=== PATIENT | male | born 1955 | race Caucasian/White ===

== ENCOUNTER 2018-05-21 10:50 | Inpatient (IN) | payer OTHER ==
[~2018-05-21] VITALS: Ht 185.4 cm; Wt 103.4 kg
[~2018-05-21 10:50] MED LIST: CIPR500; METR500
[2018-05-21 11:47] LABS: BASOPHILS ABSOLUTE AUTO 0.02 K/mm3 (0.00-0.23); BASOPHILS PERCENT AUTO 0 % (0-2); EOSINOPHILS ABSOLUTE AUTO 0.09 K/mm3 (0.00-0.68); EOSINOPHILS PERCENT AUTO 1 % (0-6); Hematocrit 40.7 % (37.0-53.0); Hemoglobin 13.5 g/dL (13.5-17.5); IMMATURE GRAN ABSOLUTE AUTO 0.02 K/mm3 (0.00-0.10); IMMATURE GRAN PERCENT AUTO 0 % (0-1); LYMPHOCYTES ABSOLUTE AUTO 1.28 K/mm3 (0.84-5.20); LYMPHOCYTES PERCENT AUTO 11 % (21-46); MONOCYTES ABSOLUTE AUTO 1.59 K/mm3 (0.16-1.47); MONOCYTES PERCENT AUTO 14 % (4-13); Mean Corpuscular HGB 32.7 pg (26.0-34.0); Mean Corpuscular HGB Conc 33.2 g/dL (31.5-36.5); Mean Corpuscular Volume 99 fL (80-100); Mean Platelet Volume 10.5 fL (9.1-12.4); NEUTROPHILS ABSOLUTE AUTO 8.76 K/mm3 (1.96-9.15); NEUTROPHILS PERCENT AUTO 74 % (41-73); Platelet Count 248 K/mm3 (150-400); RDW Coefficient Variation 12.7 % (11.7-14.2); RDW Standard Deviation 45.7 fL (35.1-46.3); Red Blood Cell Count 4.13 M/mm3 (4.30-5.90); White Blood Cell Count 11.76 K/mm3 (4.00-11.30)
[2018-05-21 12:20] LABS: Alanine Aminotransfer (ALT/SGP 26 U/L (12-78); Albumin, Blood 4.3 g/dL (3.4-5.0); Albumin/Globulin Ratio 1.1 (0.8-1.8); Alk Phos 62 U/L (50-136); Anion Gap 6 mmol/L (6-16); Aspartate Aminotrans (AST/SGOT 19 U/L (12-37); Bilirubin, Total 1.3 mg/dL (0.1-1.0); Blood Urea Nitrogen 10 mg/dL (8-24); Bun/Creatinine Ratio 12.5 (12.0-20.0); CO2, Blood 26 mmol/L (21-32); Chloride, Blood 104 mmol/L (98-108); Globulin, Blood 3.9 g/dL (2.2-4.0); Glomerular Filtration Rate >60 (60-); Glucose, Blood 114 mg/dL (70-99); Potassium, Blood 4.4 mmol/L (3.5-5.5); Sodium, Blood 136 mmol/L (136-145); Total Protein, Blood 8.2 g/dL (6.4-8.2)
[2018-05-21] MEDS ORDERED: ATOR40TA PO (15:20)
[2018-05-21] MEDS ORDERED: AMLODIPINE/BENAZEPRI (15:21)
--- NOTE | 2018-05-21 18:06 | NUR ---
ADMIT TO ROOM 213 WITH SIGNIFICANT SWELLING/ERRYTHEMA INVOLVING LEFT HAND EXTENDING TO WRIST. GOOD SENSATION AND MOVEMENT. PATIENT TO XRAY AND THEN MRI AT THIS TIME.
--- NOTE | 2018-05-21 22:30 | NUR ---
05/21/182229 Franky Oates PT ON SCHEDULED ANTIBIOTICS AND RECIEVED THEM PRIOR TO ARRIVAL TO OR.
--- NOTE | 2018-05-22 00:16 | NUR ---
PT TO OR AT 2138; REPORT FROM ICU RECOVERY, DELMI RN, AT 0000. PT TO ROOM AT 0015. ALERT, ORIENTED. CALL LIGHT IN REACH; PT AT BEDSIDE.
--- NOTE | 2018-05-22 03:28 | NUR ---
SHIFT SUMMARY PT A&O X 4 T/O SHIFT. PT POD#1 I&D L HAND/2&3 FINGERS; DRESSING CDI; DRAIN BULB COMPRESSED; LUE ELEVATED; ICE TO L HAND; PAIN MANGED PER EMAR. PT CAN MOVE FINGERS L HAND. PT DENIES N/T IN EXT. PT DENIED SOB, CP AND NAUSEA T/O SHIFT. INDEPENDENT. SCD'S AND CLAUDIA'S TO BLE'S. CALL LIGHT IN REACH; PT DEMONSTRATES USE. WCTM UNTIL REPORT TO DAY SHIFT RN.
--- NOTE | 2018-05-22 15:46 | NUR ---
drain removed by dr medina. patients left hand elevated from iv pole
--- NOTE | 2018-05-22 17:38 | NUR ---
SUMMARY PAIN WELL CONTROLLED THROUGHOUT SHIFT. PATIENT MOVING FINGERS FREQUENTLY INSTRUCTED BY DR BROTHERS. PATIENT STATES HE HAS A LOT LESS SWELLING AND A LOT MORE MOVEMENT IN HAND AND FINGERS. LEFT HAND ELEVATED ON PILLOWS AND HUNG WITH STOCKINETTE FROM IV POLE
--- NOTE | 2018-05-22 17:56 | NUR ---
CIWA PATIENT CONSUMES DAILY ALCOHOL. CIWA 0 AT THIS TIME
--- NOTE | 2018-05-23 04:34 | NUR ---
SHIFT SUMMARY PT A&O X4 T/O SHIFT. POD#2 I&D L HAND; DRESSING CDI; LUE ELEVATED; CRYOTHERAPY TO L HAND T/O SHIFT. PPPX4; PT DENIES N/T IN EXT; PWD; BRISK CAP REFILL. PT DEMONSTRATES INCREASED ROM IN L HAND/FINGERS; L HAND SELLING AND REDNESS REDUCED SINCE ADMISSION. PAIN MANGED PER EAMR. PT DENIES SOB ON RA; CP AND NAUSEA. PT BED MOBILE AND INDEPENDENT IN ROOM. KHT AND SCD'S TO BLE'S. CALL LIGHT IN REACH; PT DEMONSTRATES USE. WCTM UNTIL REPORT TO DAY SHIFT RN.
[2018-05-23 05:48] LABS: Vancomycin, Trough 11.3 ug/mL (5.0-10.0)
--- NOTE | 2018-05-23 19:16 | NUR ---
SUMMARY REPORTS PAIN IS TOLERABLE ON 1 PERCOCET, PT CONTINUES TO ELEVATE L HAND AND DO EXERCISES SHOWN BY DR. PASTRANA, AMBULATED THE HALLS TODAY, NO ACUTE CHANGES THIS SHIFT.
--- NOTE | 2018-05-24 04:56 | NUR ---
NO SIG CHANGES DURING NIGHT. PT WAS MEDICATED ONCE DURING NIGHT. DRESSING REMAINS CDI AND EXTREM ELEVATED. ABLE TO WIGGLE FINGERS, DENIES ANY N/T. CONT IV ABX TREATMENT. PLAN FOR DC HOME TODAY. CALL LIGHT IN REACH
[2018-05-24 06:17] LABS: Creatinine, Blood 0.92 mg/dL (0.60-1.20); Vancomycin, Trough 14.8 ug/mL (5.0-10.0)
[2018-05-24] MEDS ORDERED: Augmentin 875-1 EACH PO (10:01)
[2018-05-24] MEDS ORDERED: HYDR1TAB94 PO (10:01)
--- NOTE | 2018-05-24 11:11 | NUR ---
DISCHARGE DC'D HOME, DC INSTRUCTIONS GIVEN, VERBALIZED UNDERSTANDING, INSTRUCTIONS FOR DRESSING CHANGE AND WOUND CARE GIVEN, PT SENT HOME W/ DRESSING SUPPLIES DIRECTED, F/U W/ DR. BROTHERS IN AM.
== END 2018-05-24 11:11 | disposition home or self-care (01) | DRG 514 ==
LOC: ER 10:50 → SURS 16:24
PROVIDERS: Physician Assistant; ADMIT Orthopaedic Surgery
PROC: 0KBD0ZZ Excision of Left Hand Muscle, Open Approach (ICD-10-PCS; principal; 2018-05-21 13:30)
DX: M65.18 Other infective (teno)synovitis, other site (principal); I10 Essential (primary) hypertension; E78.5 Hyperlipidemia, unspecified; B95.4 Other streptococcus as the cause of diseases classified elsewhere; S62.601A Fracture of unspecified phalanx of left index finger, initial encounter for closed fracture; S62.603A Fracture of unspecified phalanx of left middle finger, initial encounter for closed fracture; Y33.XXXA Other specified events, undetermined intent, initial encounter
CPT/HCPCS: 36415; 70030; 73130; 73221; 80053; 80202; 82565; 83605; 85025; 87040; 87070; 87075; 87147; 87205; 93005; 93010; 96365; 99285-25; J0692; J1100; J1885; J2405; J2543; J3010; J3370; J7030; J7050